=== PATIENT | male | born 1960 | race Two or more races ===

== ENCOUNTER 2017-04-20 08:48 | Emergency (ER) | payer SELFPAY ==
[~2017-04-20] VITALS: Ht 177.8 cm; Wt 90.7 kg
[2017-04-20 09:40] LABS: Basophils # (auto) 0 uL; Basophils % (auto) 0.5 % (0.0-2.0); CONDITION Y; Eosinophils # (auto) 0 uL; Eosinophils % (auto) 0.1 % (0.0-7.0); Hematocrit 48.6 % (41.0-53.0); Hemoglobin 16.5 g/dL (13.5-17.5); Lymphocytes # (auto) 1.5 uL; Lymphocytes % (auto) 32.7 % (10.0-50.0); Mean Corpuscular Hemoglobin 28.5 pg (28.0-32.0); Mean Corpuscular Hgb Conc. 33.9 g/dL (32.0-36.0); Mean Corpuscular Volume 84.1 fL (80.0-100.0); Mean Platelet Volume 7.7 fL (7.4-10.4); Monocytes # (auto) 0.4 uL; Neutrophils # (auto) 2.7 uL; Neutrophils % (auto) 58.7 % (37.0-80.0); Platelet Count (auto) 242 10^3/uL (140-450); Red Cell Distribution Width 17.1 % (11.6-16.0); White Blood Cell 4.5 10^3/uL (4.4-10.8)
[2017-04-20 10:04] LABS: Albumin 4.6 g/dL (3.4-5.0); Anion Gap 14 (5-15); Aspartate Aminotransferase 42 U/L (15-37); BUN/Creatinine Ratio 3.7; Blood Urea Nitrogen 7 mg/dL (7-18); Carbon Dioxide 22 mmol/L (21-32); Chloride 104 mmol/L (98-107); GFR African American 48 mL/min; GFR Non-African American 40 mL/min; Glucose 114 mg/dL (74-106); Potassium 3.2 mmol/L (3.5-5.1); Sodium 140 mmol/L (136-145)
[2017-04-20 10:06] LABS: Alkaline Phosphatase 89 U/L (45-117); Bilirubin, Total 0.9 mg/dL (0.2-1.0); Total Protein 8.9 g/dL (6.4-8.2)
[2017-04-20] MEDS ORDERED: THIAMINE INJ 100 MG, MULTIPLE VITAMIN 10 ML, FOLIC ACID 1 MG, MAGNESIUM SULF SDV 50% 8 ... IV ONE ×5 (10:30)
[2017-04-20 13:27] VITALS: BP 143/88
== END 2017-04-20 15:30 | disposition home or self-care (01) ==
LOC: EDBD 08:48 → ER 08:48
DX: R53.1 Weakness (principal)
CPT/HCPCS: 36415; 70450; 80053; 80307; 80320; 82140; 85025; 94761; 96365; 96366; 99285; J3411; J3475; J7030